=== PATIENT | male | born 1995 | race Caucasian/White ===

== ENCOUNTER 2017-10-17 14:05 | Emergency (ER) | payer BC ==
--- NOTE | 2017-10-17 15:01 | ED ---
Bite Injury/Animal - HPI Summary HPI Summary: Pt here w/ rabid mcdaniels encounter last night. Reports mcdaniels came at him from the [place] as he was walking down the road. Pt was able to bat the mcdaniels away by striking it across the neck with a long sleeve on, covering his arm. The mcdaniels then scampered toward his feet but he was able to kick it away. No skin contact , no biting, no saliva contact. Pt took his clothes off as soon as he got home. Spoke w/ [facility] prior to arrival who did not feel he needed tx but he wanted to be evaluated just to be safe as 4 others were attacked by same mcdaniels and required rabies tx. - History of Current Complaint Chief Complaint: EDAnimalBite Stated Complaint: ATTACKED BY MCDANIELS Time Seen by Provider: 10/17/17 14:42 Hx Obtained From: Patient Pain Intensity: 0 - Allergies/Home Medications Allergies/Adverse Reactions: Allergies Allergy/AdvReac Type Severity Reaction Status Date / Time No Known Allergies Allergy Verified 10/17/17 14:14 PMH/Surg Hx/FS Hx/Imm Hx Previously Healthy: Yes - Immunization History Immunizations Up to Date: Yes Infectious Disease History: No Infectious Disease History: Denies: Traveled Outside the [place] in Last 30 Days - Family History Known Family History: Positive: None - Social History Occupation: Student Lives: Dormitory/Roommates Alcohol Use: Unk/ETOH at present Hx Substance Use: No Substance Use Type: Reports: None Hx Tobacco Use: No Smoking Status (MU): Never Smoked Tobacco Review of Systems Positive: no symptoms reported Musculoskeletal: Negative Skin: Negative Neurological: Negative Psychological: Normal - concerned but calm and cooperative All Other Systems Reviewed And Are Negative: Yes Physical Exam Triage Information Reviewed: Yes Vital Signs On Initial Exam: Initial Vitals Temp Pulse Resp BP Pulse Ox 99.3 F 66 16 116/91 98 10/17/17 14:09 10/17/17 14:09 10/17/17 14:10/17/17 14:10/17/17 14:09 Vital Signs Reviewed: Yes Appearance: Positive: Well-Appearing, No Pain Distress, Well-Nourished Skin: Positive: Warm, Skin Color Reflects Adequate Perfusion, Dry - no abrasions , no lac, no bites, no breask in skin Head/Face: Positive: Normal Head/Face Inspection Eyes: Positive: EOMI ENT: Positive: Hearing grossly normal Respiratory/Lung Sounds: Positive: Breath Sounds Present Cardiovascular: Positive: Pulses are Symmetrical in both Upper and Lower Extremities Musculoskeletal: Positive: Normal, Strength/ROM Intact Neurological: Positive: Normal, Sensory/Motor Intact, Alert, Oriented to Person Place, Time, CN Intact II-III Psychiatric: Positive: Normal Diagnostics - Vital Signs Vital Signs Temp Pulse Resp BP Pulse Ox 10/17/17 14:09 99.3 F 66 16 116/91 98 - Laboratory Lab Statement: Any lab studies that have been ordered have been reviewed, and results considered in the medical decision making process. Bite Injury Course/Dx - Course Course Of Treatment: No further care required for this pt. [facility] is also aware - they report mcdaniels was captured and killed. - Diagnoses Provider Diagnosis: Unspecified injury caused by animal Discharge - Sign-Out/Discharge Documenting (check all that apply): Discharge/Admit/Transfer - Discharge Plan Condition: Stable Disposition: HOME Referrals: [facility] [Primary Care Provider] - Additional Instructions: You have encountered what sounds like a rabid mcdaniels. Due to the type of interaction you had, no treatments are necessary at this time. If you're interested in prophylactic rabies vaccine, you may inquire with your PCP or local health department when you return home. - Billing Disposition and Condition Condition: STABLE Disposition: HOME
[2017-10-17 15:46] VITALS: BP 124/73
== END 2017-10-17 15:45 | disposition home or self-care (01) ==
LOC: ED 14:05
DX: Z20.3 Contact with and (suspected) exposure to rabies (principal)
CPT/HCPCS: 99281

== ENCOUNTER 2017-10-18 12:16 | Emergency (ER) | payer BC ==
[2017-10-18] MEDS ORDERED: Rabies Immune Globulin 2 ML* 150 UNITS/ML VIAL IM ONE (14:17)
[2017-10-18] MEDS ORDERED: Rabies Vaccine (RabAvert)* 2.5 UNITS VIAL IM ONE (14:17)
[2017-10-18] MEDS ORDERED: Rabies Immune Globulin 10 ML* 150 UNIT/ML VIAL IM ONE (15:00)
[2017-10-18 15:36] VITALS: BP 149/83
--- NOTE | 2017-10-18 18:09 | ED ---
Skin Complaint - HPI Summary HPI Summary: Patient is a 21-year-old male who presents emergency department for reevaluation after being attacked by a blankenship 2 days ago. Pt. notes on Thursday night he was walking [place] the [place] when a blankenship attacked him. He states that the blankenship was biting at his legs and ripped his pants. After incident patient went home and did not see any bites or wounds to his legs but presented to the ER for evaluation the following day in the emergency department. In the ER there were no wounds to legs or arms noted and prophylactic treatment was not given. Patient states today he noticed a small abrasion to his left lateral leg and is unsure if it is from the blankenship. Symptoms are mild in severity. Patient states his tetanus immunization is up-to-date. He has no past medical history. No current modifying factors. Pt. otherwise offers no complaints. - History of Current Complaint Chief Complaint: EDAnimalBite Time Seen by Provider: 10/18/17 13:30 Stated Complaint: F/U ON BLANKENSHIP ATTACK-HERE YESTERDAY Hx Obtained From: Patient Pain Intensity: 0 Pain Scale Used: 0-10 Numeric - Allergy/Home Medications Allergies/Adverse Reactions: Allergies Allergy/AdvReac Type Severity Reaction Status Date / Time No Known Allergies Allergy Verified 10/17/17 14:14 PMH/Surg Hx/FS Hx/Imm Hx Previously Healthy: Yes - Immunization History Date of Tetanus Vaccine: Infectious Disease History: No Infectious Disease History: Denies: Traveled Outside the [place] in Last 30 Days - Social History Alcohol Use: Occasionally Substance Use Type: Reports: None Substance Use Comment - Amount & Last Used: occasionally Smoking Status (MU): Never Smoked Tobacco Review of Systems Positive: Other - Abrasion to left lower leg. All Other Systems Reviewed And Are Negative: Yes Physical Exam Triage Information Reviewed: Yes Vital Signs On Initial Exam: Initial Vitals Temp Pulse Resp BP Pulse Ox 98.3 F 101 16 132/76 98 10/18/17 12:20 10/18/17 12:20 10/18/17 12:20 10/18/17 12:20 10/18/17 12:20 Vital Signs Reviewed: Yes Appearance: Positive: Well-Appearing - Pt. sitting on chair in NAD. Anxious. Skin: Positive: Warm, Dry - Small, superficial abrasion noted to the lateral aspect of the distal lower extremity., Other Head/Face: Positive: Normal Head/Face Inspection Eyes: Positive: Normal, GENNY Neck: Positive: Supple Neurological: Positive: Normal, CN Intact II-III Psychiatric: Positive: Anxious Diagnostics - Vital Signs Vital Signs Temp Pulse Resp BP Pulse Ox 10/18/17 15:35 98.4 F 83 16 149/83 99 10/18/17 12:20 98.3 F 101 16 132/76 98 - Laboratory Lab Statement: Any lab studies that have been ordered have been reviewed, and results considered in the medical decision making process. Course/Dx - Course Course Of Treatment: Pt. presenting for possible wound secondary to blankenship. I called and spoke with the health department who confirmed there have been at least 5 reported attacks from blankenship. Blankenship was captured and they are waiting for rabies results. They highly suspect that blankenship was rabid. Given circumstances will proactively treat palpation. He will follow up with health department for vaccines on days 3, 7 and 14. Advised to keep wound clean and dry. To return to the ER symptoms change or worsen. - Differential Diagnoses - Skin Complaint Differential Diagnoses: Abscess, Cellulitis - Diagnoses Provider Diagnoses: Abrasion, Rabies, need for prophylactic vaccination against Discharge - Sign-Out/Discharge Documenting (check all that apply): Discharge/Admit/Transfer - Discharge Plan Condition: Good Disposition: HOME Patient Education Materials: Rabies (ED), Rabies Vaccine (ED) [facility] [Primary Care Provider] - Additional Instructions: Follow up with the health department for the remainder of rabies vaccine: 10/21, 10/25 and 10/25/17 Keep wound clean and dry Return to ER if symptoms change or worsen - Billing Disposition and Condition Condition: GOOD Disposition: HOME
== END 2017-10-18 15:36 | disposition home or self-care (01) ==
LOC: ED 12:16
DX: S80.812D Abrasion, left lower leg, subsequent encounter (principal); W64.XXXD Exposure to other animate mechanical forces, subsequent encounter; Z20.3 Contact with and (suspected) exposure to rabies
CPT/HCPCS: 90375; 90675; 99282